=== PATIENT | female | born 1990 ===

== ENCOUNTER 2016-11-13 22:35 | Emergency (ER) | payer SELFPAY ==
[~2016-11-13] VITALS: Ht 157.5 cm; Wt 57.5 kg
[2016-11-13 22:39] VITALS: Ht 157.5 cm; Wt 57.5 kg
== END 2016-11-14 01:26 | disposition left against medical advice (07) ==
LOC: FTE 22:35
DX: Z53.21 Procedure and treatment not carried out due to patient leaving prior to being seen by health care provider (principal)